=== PATIENT | female | born 1985 | race African-American/Black ===

== ENCOUNTER 2017-04-25 17:04 | Emergency (ER) | payer MEDICAID, OTHER ==
--- NOTE | 2017-04-25 17:33 | ER Document Report ---
ED Medical Screen (RME) - General Chief Complaint: Allergy Symptoms Stated Complaint: ABDOMINAL PAIN,CHILLS Time Seen by Provider: 04/25/17 17:26 Mode of Arrival: Ambulatory Information source: Patient TRAVEL OUTSIDE OF THE [place] IN LAST 30 DAYS: No - HPI Patient complains to provider of: chills, allergic reaction Onset: This afternoon - pt saw her pcp earlier today and was diagnosed with bronchitis -- after taking first Abc pill, she developed chills and nausea. Thinks she may be having allergic rxn to meds - Related Data Allergies/Adverse Reactions: No Known Allergies Allergy (Unverified 04/25/17 17:06) Past Medical History Renal/ Medical History: Denies: Hx Peritoneal Dialysis Physical Exam - Vital signs Vitals: Temp Pulse Resp BP Pulse Ox 99.3 F 89 18 121/71 100 04/25/17 17:09 04/25/17 17:09 04/25/17 17:09 04/25/17 17:09 04/25/17 17:09 Course - Vital Signs Vital signs: Temp Pulse Resp BP Pulse Ox 99.3 F 89 18 121/71 100 04/25/17 17:09 04/25/17 17:09 04/25/17 17:09 04/25/17 17:09 04/25/17 17:09
--- NOTE | 2017-04-25 18:03 | RADIOLOGY REPORT (SQ) ---
EXAM DESCRIPTION: CHEST PA/LAT COMPLETED DATE/TIME: 04/25/2017 5:50 pm REASON FOR STUDY: cough COMPARISON: None. EXAM PARAMETERS: NUMBER OF VIEWS: two views TECHNIQUE: Digital Frontal and Lateral radiographic views of the chest acquired. RADIATION DOSE: NA LIMITATIONS: none FINDINGS: LUNGS AND PLEURA: No opacities, masses or pneumothorax. No pleural effusion. MEDIASTINUM AND HILAR STRUCTURES: No masses or contour abnormalities. HEART AND VASCULAR STRUCTURES: Heart normal size. No evidence for failure. BONES: No acute findings. HARDWARE: None in the chest. OTHER: No other significant finding. IMPRESSION: NO SIGNIFICANT RADIOGRAPHIC FINDING IN THE CHEST. TECHNICAL DOCUMENTATION: JOB ID: [id number] [employer]- All Rights Reserved
[2017-04-25 18:13] LABS: ABSOLUTE LYMPHOCYTES (AUTO) 0.8 10^3/uL (0.5-4.7); ABSOLUTE MONOCYTES (AUTO) 0.6 10^3/uL (0.1-1.4); ABSOLUTE NEUT (AUTO) 1.8 10^3/uL (1.7-8.2); BASOPHILS % (AUTO) 0.4 % (0-2); EOSINOPHILS % (AUTO) 0.7 % (0-6); HEMATOCRIT 28.3 % (36.0-47.0); LYMPHOCYTES % (AUTO) 24.3 % (13-45); MEAN CORPUSCULAR HEMOGLOBIN 23.6 pg (27.0-33.4); MEAN CORPUSCULAR HGB CONC 31.7 g/dL (32.0-36.0); MEAN CORPUSCULAR VOLUME 74 fl (80-97); MONOCYTES % (AUTO) 18.8 % (3-13); PLATELET COUNT 318 10^3/uL (150-450); RED BLOOD COUNT 3.81 10^6/uL (3.72-5.28); RED CELL DISTRIBUTION WIDTH 17.2 % (11.5-14.0); SEGMENTED NEUTROPHILS % (AUTO) 55.8 % (42-78); TOTAL CELLS COUNTED % (AUTO) 100 %; WHITE BLOOD COUNT 3.2 10^3/uL (4.0-10.5)
[2017-04-25 18:33] LABS: ALANINE AMINOTRANSFERASE 35 U/L (9-52); ALBUMIN 4.4 g/dL (3.5-5.0); ALKALINE PHOSPHATASE 69 U/L (38-126); ANION GAP 11 (5-19); ASPARTATE AMINO TRANSFERASE 34 U/L (14-36); BILIRUBIN,DIRECT 0.2 mg/dL (0.0-0.4); BILIRUBIN,TOTAL 0.8 mg/dL (0.2-1.3); BLOOD UREA NITROGEN 7 mg/dL (7-20); CALCIUM 9.9 mg/dL (8.4-10.2); CARBON DIOXIDE 25 mmol/L (22-30); CHLORIDE 102 mmol/L (98-107); GLUCOSE 86 mg/dL (75-110); POTASSIUM 4.5 mmol/L (3.6-5.0); SODIUM 137.5 mmol/L (137-145); TOTAL PROTEIN 7.7 g/dL (6.3-8.2)
[2017-04-25 19:36] LABS: APPEARANCE,URINE CLEAR; BILIRUBIN,URINE NEGATIVE (NEGATIVE); COLOR,URINE YELLOW; GLUCOSE, URINE NEGATIVE (NEGATIVE); KETONES,URINE 20 mg/dL (NEGATIVE); LEUKOCYTE ESTERASE,URINE NEGATIVE (NEGATIVE); NITRITE,URINE NEGATIVE (NEGATIVE); PROTEIN,URINE NEGATIVE (NEGATIVE); URINE SPECIFIC GRAVITY 1.009; UROBILINOGEN,URINE NEGATIVE mg/dL (<2.0)
[2017-04-25] MEDS ORDERED: ONDANSETRON 4 MG TAB.RAPDIS PO ONE (22:05)
[2017-04-25] MEDS ORDERED: ACETAMINOPHEN 325 MG TABLET PO ONE (22:05)
[2017-04-25] MEDS ORDERED: ONDANSETRON ODT 4 MG TAB (6 TAB/ER DISP) PO PRN (22:18)
--- NOTE | 2017-04-25 22:21 | ER Document Report ---
ED General - General Chief Complaint: Allergy Symptoms Stated Complaint: ABDOMINAL PAIN,CHILLS Time Seen by Provider: 04/25/17 17:26 Mode of Arrival: Ambulatory Notes: Patient is a 31-year-old female who presents with complaint of having epigastric abdominal pain and nausea after taking azithromycin. She is prescribed this because she was diagnosed with bronchitis by urgent care. Patient denies history of asthma. She denies wheezing. She was prescribed inhalers well. She denies fevers. He has no other complaints at this time. She does not smoke. Patient was also prescribed Tessalon Perles. TRAVEL OUTSIDE OF THE [place] IN LAST 30 DAYS: No - Related Data Allergies/Adverse Reactions: No Known Allergies Allergy (Unverified 04/25/17 17:06) Past Medical History - General Information source: Patient - Social History Smoking Status: Never Smoker Frequency of alcohol use: None Drug Abuse: None Family History: Reviewed & Not Pertinent Patient has suicidal ideation: No Patient has homicidal ideation: No Renal/ Medical History: Denies: Hx Peritoneal Dialysis Review of Systems - Review of Systems Notes: My Normal Review Basic REVIEW OF SYSTEMS: CONSTITUTIONAL : Denies fever, chills, or sweats. Denies recent illness. EENT: Denies eye, ear, throat, or mouth pain or symptoms. Denies nasal or sinus congestion. CARDIOVASCULAR: Denies chest pain. RESPIRATORY: Denies cough, cold, or chest congestion. Denies shortness of breath, difficulty breathing, or wheezing. GASTROINTESTINAL: Epigastric abdominal pain. episode of vomiting. GENITOURINARY: Denies difficulty urinating, painful urination, burning, frequency, or blood in urine. MUSCULOSKELETAL: Denies neck or back pain or joint pain or swelling. SKIN: Denies rash or skin lesions. NEUROLOGICAL: Denies altered mental status or loss of consciousness. Denies headache. Denies weakness or paralysis or loss of use of either side. Denies problems with gait or speech. Denies sensory or motor loss. ALL OTHER SYSTEMS REVIEWED AND NEGATIVE. Physical Exam - Vital signs Vitals: Temp Pulse Resp BP Pulse Ox 99.3 F 89 18 121/71 100 04/25/17 17:09 04/25/17 17:09 04/25/17 17:09 04/25/17 17:09 04/25/17 17:09 - Notes Notes: General Appearance: Well nourished, alert, cooperative, no acute distress, no obvious discomfort. Vitals: reviewed, See vital signs table. Head: no swelling or tenderness to the head Eyes: PERRL, EOMI, Conjuctiva clear Mouth: No decreasd moisture Throat: Normal-appearing pharynx without evidence of pharyngitis. Lungs: No wheezing, No rales, No rhonci, No accessory muscle use, good air exchange bilaterally. Heart: Normal rate, Regular rythm, No murmur, no rub Abdomen: Normal BS, soft, No rigidity, very mild epigastric abdominal tenderness to palpation., No guarding, no rebound, Extremities: strength 5/5 in all extremities, good pulses in all extremities, no swelling or tenderness in the extremities, no edema. Skin: warm, dry, appropriate color, no rash Neuro: speech clear, oriented x 3, normal affect, responds appropriately to questions. Course - Re-evaluation Re-evalutation: 04/26/17 05:52 I suspect patient's epigastric pain and nausea probably related to the azithromycin. I will have her stop taking azithromycin. I do not think she needs an antibiotic. She does not have pneumonia. She did not have wheezing. She looks well. Encouraged her return to ER if she has recurrent wheezing feels unwell. Told [facility] is located take. Encouraged follow-up with in 2-3 days for reevaluation. Patient agrees with plan will be discharged home. - Vital Signs Vital signs: Temp Pulse Resp BP Pulse Ox 98.3 F 78 16 118/69 100 04/25/17 22:28 04/25/17 22:28 04/25/17 22:28 04/25/17 22:28 04/25/17 22:28 - Laboratory Result Diagrams: 04/25/17 17:35 04/25/17 17:35 Laboratory results interpreted by me: 04/25/17 04/25/17 17:35 19:15 WBC 3.2 L Hgb 9.0 L Hct 28.3 L MCV 74 L MCH 23.6 L MCHC 31.7 L RDW 17.2 H Monocytes % 18.8 H Urine Ketones 20 H Discharge - Discharge Clinical Impression: Cough, Nausea Medication side effect Qualifiers: Encounter type: initial encounter Qualified Code(s): T88.7XXA - Unspecified adverse effect of drug or medicament, initial encounter Abdominal pain Qualifiers: Abdominal location: epigastric Qualified Code(s): R10.13 - Epigastric pain Condition: Good Disposition: HOME, SELF-CARE Additional Instructions: Please return to the ER immediately if you have wheezing, difficulty breathing, recurrent vomiting, or feel unwell. Please stop taking the Azithromycin. Your white blood cell count is a little low. This sometimes happens during a viral illness. Please follow up with your doctor in 1 week to have your WBC count rechecked to make sure it returns to normal.
[2017-04-25 22:29] VITALS: BP 118/69
== END 2017-04-25 22:28 | disposition home or self-care (01) ==
LOC: ER 17:04
DX: R05 Cough (principal); R11.0 Nausea; R10.13 Epigastric pain; T88.7XXA Unspecified adverse effect of drug or medicament, initial encounter
CPT/HCPCS: 99284; 36415; 85025; 81025; 80053; 81001; 71046; J3490; S0119

== ENCOUNTER 2017-08-29 19:24 | Emergency (ER) | payer SELFPAY ==
[2017-08-29 19:30] VITALS: BP 125/78
[2017-08-29] MEDS ORDERED: PREDNISONE 20 MG TABLET PO ONE (21:02)
--- NOTE | 2017-08-29 21:04 | ER Document Report ---
ED ENT - General Chief Complaint: Sore Throat Stated Complaint: COLD SYMPTOMS Time Seen by Provider: 08/29/17 19:48 Mode of Arrival: Ambulatory Information source: Patient Notes: 1-year-old female presented ED for cough cold congestion nasal drainage and sore throat for 4 days. She states she has felt a little hot flushed and felt like she might pass out earlier today. She states she has done this in the past after she had taken a sleeping medicine. Vital signs are stable at this time blood pressure is normal Accu-Chek 107 at this time. Pupils are equal and react to light, patient is alert and oriented, lungs are clear respirations regular even unlabored, patient is able to walk with the even steady gait, and patient is able to speak in full sentences with a decrease in volume. TRAVEL OUTSIDE OF THE [place] IN LAST 30 DAYS: No - HPI Patient complains to provider of: Nose problem, Throat problem Onset: Other - 4 days Onset/Duration: Gradual Quality of pain: Achy, Other Severity: Moderate - But the sore throat Pain Level: 4 Context: Recent Illness Location of pain: Nose, Sinus, Throat Associated symptoms: Congestion, Cough, Runny nose, Sinus pain, Sinus drainage, Sore throat, Swollen glands Similar symptoms previously: Yes Recently seen / treated by doctor: No - Related Data Allergies/Adverse Reactions: No Known Allergies Allergy (Verified 08/29/17 19:27) Past Medical History - General Information source: Patient - Social History Smoking Status: Never Smoker Cigarette use (# per day): No Chew tobacco use (# tins/day): No Smoking Education Provided: No Frequency of alcohol use: None Drug Abuse: None 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 denies: Arthritis, COPD, CVA, Thyroid Disfunction Patient has suicidal ideation: No Patient has homicidal ideation: No - Past Medical History Cardiac Medical History: Reports: None Pulmonary Medical History: Reports: None EENT Medical History: Reports: None Neurological Medical History: Reports: None Endocrine Medical History: Reports: None Renal/ Medical History: Reports: None Malignancy Medical History: Reports: None GI Medical History: Reports: None Musculoskeltal Medical History: Reports None Skin Medical History: Reports None Psychiatric Medical History: Reports: None Traumatic Medical History: Reports: None Infectious Medical History: Reports: None Surgical Hx: Negative Past Surgical History: Reports: None - Immunizations Immunizations up to date: Yes Review of Systems - Review of Systems Constitutional: Recent illness EENT: No symptoms reported, Nose discharge, Sinus discharge, Throat pain, Other - Decrease in voice Cardiovascular: No symptoms reported Respiratory: Cough Gastrointestinal: No symptoms reported Genitourinary: No symptoms reported Female Genitourinary: No symptoms reported Musculoskeletal: No symptoms reported Skin: No symptoms reported Hematologic/Lymphatic: No symptoms reported Neurological/Psychological: No symptoms reported -: Yes All other systems reviewed and negative Physical Exam - Vital signs Vitals: Temp Pulse Resp BP Pulse Ox 98.4 F 90 18 125/78 99 08/29/17 19:28 08/29/17 19:28 08/29/17 19:28 08/29/17 19:28 08/29/17 19:28 Interpretation: Normal - General General appearance: Appears well, Alert - HEENT Head: Normocephalic, Atraumatic Eyes: Normal Pupils: PERRL Visual lopez normal: Yes Ears: Normal External canal: Normal Tympanic membrane: Normal Sinus: Normal Nasal: Purulent discharge, Swelling Mouth/Lips: Normal Mucous membranes: Normal Pharynx: Post nasal drainage. No: Erythema, Exudate, Peritonsillar abscess, Retropharyngeal abscess, Tonsillar hypertrophy, Potential airway comprom. Neck: Anterior cervical chain - Respiratory Respiratory status: No respiratory distress Chest status: Nontender Breath sounds: Nonproductive cough Chest palpation: Normal - Cardiovascular Rhythm: Regular Heart sounds: Normal auscultation Murmur: No - Abdominal Inspection: Normal Distension: No distension Bowel sounds: Normal Tenderness: Nontender Organomegaly: No organomegaly - Back Back: Normal, Nontender - Extremities General upper extremity: Normal inspection, Nontender, Normal color, Normal ROM , Normal temperature General lower extremity: Normal inspection, Nontender, Normal color, Normal ROM , Normal temperature, Normal weight bearing. No: Risa's sign - Neurological Neuro grossly intact: Yes Cognition: Normal Orientation: AAOx4 [place] Coma Scale Eye Opening: Spontaneous Hal Coma Scale Verbal: Oriented [place] Coma Scale Motor: Obeys Commands Hal Coma Scale Total: 15 Speech: Normal Motor strength normal: LUE, RUE, LLE, RLE Sensory: Normal - Psychological Associated symptoms: Normal affect, Normal mood - Skin Skin Temperature: Warm Skin Moisture: Dry Skin Color: Normal Course - Re-evaluation Re-evalutation: 08/29/17 21:13 After performing a Medical Screening Examination, I estimate there is LOW risk for ACUTE CORONARY SYNDROME, RESPIRATORY FAILURE, SEPSIS OR MENINGITIS, thus I consider the discharge disposition reasonable. I have reevaluated this patient multiple times and no significant life threatening changes are noted. The patient and I have discussed the diagnosis and risks, and we agree with discharging home with close follow-up. We also discussed returning to the Emergency Department immediately if new or worsening symptoms occur. We have discussed the symptoms which are most concerning (e.g., changing or worsening pain, trouble swallowing or breathing, neck stiffness, fever) that necessitate immediate return. - Vital Signs Vital signs: Temp Pulse Resp BP Pulse Ox 98.4 F 90 18 125/78 99 08/29/17 19:28 08/29/17 19:28 08/29/17 19:28 08/29/17 19:28 08/29/17 19:28 Discharge - Discharge Clinical Impression: Viral sore throat URI (upper respiratory infection) Qualifiers: URI type: unspecified URI Qualified Code(s): J06.9 - Acute upper respiratory infection, unspecified Condition: Stable Disposition: HOME, SELF-CARE Additional Instructions: SORE THROAT: Sore throats may be caused by viruses, bacteria, or fungi. Most are due to a virus, and must get better on their own. Bacterial sore throats, particularly those due to "strep," need treatment with antibiotics. If an antibiotic is prescribed, be sure to take the medication for a full 10 days. Failure to take the antibiotic can result in complications such as rheumatic fever. Sometimes, an injection of antibiotics is given instead of pills or liquid. This single "shot" is equal in effectiveness to the oral medication. To relieve symptoms, take acetaminophen for pain. Sip clear liquids frequently, or eat popsicles or ice chips. Anesthetic sprays or lozenges may help. Make sure the air in the room is not too dry. Avoid using decongestants or antihistamines. Call the doctor if there is no improvement in two days, or if you have difficulty breathing, increasing throat pain, high fever, rash, or frequent vomiting. UPPER RESPIRATORY ILLNESS: You have a viral infection of the respiratory passages -- a "cold." This common infection causes nasal congestion, drainage, and often sore throat and cough. It is highly contagious. The disease usually lasts about 10 to 14 days. There is no "cure" for the viral infection -- it must run its course. If there is a complication, such as bacterial infection in the nose, sinuses, middle ear, or bronchial tubes, antibiotics may be required. The antibiotics won't affect the virus. Drink plenty of fluids. A humidifier may help. An expectorant medication or decongestant may make you more comfortable. Use acetaminophen or ibuprofen for fever or aches. See the doctor if fever persists over two days, if there is any significant worsening of your symptoms, or if you simply fail to improve as expected. DECONGESTANT MEDICATION: A decongestant medicine has been prescribed. Often this medicine is combined in the same tablet with an antihistamine or expectorant. This type of medicine is helpful in treating a bad cold or sinus condition, as well as in treatment of the nasal congestion of hay fever. It is not of much benefit for lung infections. Decongestant medicines are related to stimulants. They can cause an increase in blood pressure and heart rate. Persons with heart disease and high blood pressure should not take decongestants without discussing this with the physician. If you develop palpitations, chest pain, headache, or tremors, stop the medicine and consult your physician. STEROID MEDICATION: You have been given an injection of or oral medicine of the cortisone/ steroid class. This medication is used to control inflammation or allergy. Kendrick t is usually only given for a short period of time, until the acute process subsides. There are usually no side effects from short-term use of cortisone-like medications. Some persons feel an increased sense of well-being and are not sleepy at bedtime. Long-term use of cortisone medications is best avoided, unless required for a severe condition. If your condition does not remit, or relapses after the course of corticosteroid medication, you should consult your physician. USE OF ACETAMINOPHEN (Tylenol): Acetaminophen may be taken for pain relief or fever control. It's much safer than aspirin, offering a wider range of "safe" dosages. It is safe during . Some brand names are Tylenol, Panadol, Datril, Anacin 3, Tempra, and Liquiprin. Acetaminophen can be repeated every four hours. The following are maximum recommended dosages: >89 pounds or adults 650 mg to 900 mg Acetaminophen can be repeated every four hours. Maximum dose not to exceed 4000 mg a day. Please try Sudafed 30 mg, Mucinex 600 mg, Claritin 10 mg, and Flonase nasal spray for your cough cold congestion symptoms. These are all [id number]-[id number] medications. The Sudafed you will need to ask the pharmacist for. Use Tylenol or Motrin for the pain and discomfort. For your sore throat she can use Chloraseptic [place] and salt and soda solution gargles. Salt and soda solution 1 quart of water 1 tablespoon of salt 1 teaspoon of baking soda Mixed 3 ingredients together and boil for 1 minute Placed in a covered quart jar Use 1/2 ounce of cold solution to gargle 3 times a day FOLLOW-UP CARE: If you have been referred to a physician for follow-up care, call the physician s office for an appointment as you were instructed or within the next two days. If you experience worsening or a significant change in your symptoms, notify the physician immediately or return to the Emergency Department at any time for re-evaluation. Forms: Return to Work Referrals: SINCERE WEINER MD [Primary Care Provider] - Follow up as needed
[2017-08-29] MEDS ORDERED: PSEUDOEPHEDRINE HCL 30 MG TABLET PO ONE (21:05)
[2017-08-29] MEDS ORDERED: GUAIFENESIN 600 MG TABLET.SA PO ONE (21:05)
== END 2017-08-29 21:20 | disposition home or self-care (01) ==
LOC: ER 19:24
DX: J06.9 Acute upper respiratory infection, unspecified (principal); J02.9 Acute pharyngitis, unspecified; B97.89 Other viral agents as the cause of diseases classified elsewhere; R09.81 Nasal congestion; R09.89 Other specified symptoms and signs involving the circulatory and respiratory systems; R05 Cough
CPT/HCPCS: 99283; 87070; 87880; 82962; J7512

== ENCOUNTER 2018-07-13 16:18 | Emergency (ER) | payer OTHER ==
[2018-07-13 16:26] VITALS: BP 122/62
[2018-07-13] MEDS ORDERED: LIDOCAINE 1% INJ-PF (10 MG/ML) 30 ML SDV INJ ONE (16:46)
--- NOTE | 2018-07-13 16:48 | ER Document Report ---
ED Medical Screen (RME) - General Chief Complaint: Abscess Stated Complaint: SKIN PROBLEM Time Seen by Provider: 07/13/18 16:43 Primary Care Provider: SINCERE WEINER MD [Primary Care Provider] - Follow up as needed TRAVEL OUTSIDE OF THE [place] IN LAST 30 DAYS: No - HPI Notes: 07/13/18 16:47 Patient is a 32-year-old female with no significant past medical history and no history of MRSA who presents emergency department complaining of abscess to her right lower leg that is been there for 2 days. Patient has noticed redness and associated pain. It has not been draining. Denies drug allergies. Denies fever, chest pain, shortness of breath, abdominal pain. I have treated and performed a rapid initial assessment of this patient. A comprehensive ED assessment and evaluation of the patient, analysis of test results and completion of medical decision making process will be conducted by additional ED providers. PHYSICAL EXAMINATION: GENERAL: Well-appearing, well-nourished and in no acute distress. A&Ox4. Answers questions appropriately. LUNGS: Breath sounds clear to auscultation bilaterally and equal. No wheezes rales or rhonchi. HEART: Regular rate and rhythm without murmurs, rubs, gallops. Skin: There is noted abscess/fluctuance to the right lower leg anteriorly without drainage. Positive tenderness. - Related Data Allergies/Adverse Reactions: No Known Allergies Allergy (Verified 07/13/18 16:19) Past Medical History - Social History Chew tobacco use (# tins/day): No Frequency of alcohol use: None Drug Abuse: None Renal/ Medical History: Denies: Hx Peritoneal Dialysis - Immunizations Immunizations up to date: Yes Physical Exam - Vital signs Vitals: Temp Pulse Resp BP Pulse Ox 99.1 F 79 18 122/62 100 07/13/18 16:25 07/13/18 16:25 07/13/18 16:25 07/13/18 16:25 07/13/18 16:25 Course - Vital Signs Vital signs: Temp Pulse Resp BP Pulse Ox 99.1 F 79 18 122/62 100 07/13/18 16:25 07/13/18 16:25 07/13/18 16:25 07/13/18 16:25 07/13/18 16:25 Doctor's Discharge - Discharge Referrals: SINCERE WEINER MD [Primary Care Provider] - Follow up as needed
--- NOTE | 2018-07-13 17:38 | ER Document Report ---
ED General - General Chief Complaint: Abscess Stated Complaint: SKIN PROBLEM Time Seen by Provider: 07/13/18 16:43 Primary Care Provider: SINCERE WEINER MD [COMMUNITY BASED STAFF] - Follow up as needed Mode of Arrival: Ambulatory Information source: Patient TRAVEL OUTSIDE OF THE [place] IN LAST 30 DAYS: No - HPI Patient complains to provider of: Right lower extremity abscess Onset: Other - Symptoms present for about 1 week, but no pustular head formation developed over the past 2 days. Onset/Duration: Gradual Quality of pain: Burning Severity: Moderate Pain Level: 3 Associated symptoms: None Exacerbated by: Denies Relieved by: Denies Similar symptoms previously: No Recently seen / treated by doctor: No Notes: 32-year-old -[place] female here with a right lower leg abscess. She has been putting hot compresses on it and it came to ahead sometime during the past 24 hours. No fevers or shaking chills. - Related Data Allergies/Adverse Reactions: No Known Allergies Allergy (Verified 07/13/18 16:19) Past Medical History - General Information source: Patient - Social History Smoking Status: Never Smoker Chew tobacco use (# tins/day): No Frequency of alcohol use: None Drug Abuse: None Family History: Reviewed & Not Pertinent, CAD, DM, Hyperlipidemia, Hypertension, Malignancy. denies: Arthritis, COPD, CVA, Thyroid Disfunction Patient has suicidal ideation: No Patient has homicidal ideation: No Renal/ Medical History: Denies: Hx Peritoneal Dialysis - Immunizations Immunizations up to date: Yes Review of Systems - Review of Systems Notes: Constitutional: No fevers. No chills. EENT: No eye redness. No eye pain. No ear pain. No sore throat. Cardiovascular: No chest pain. No palpitations. Respiratory: No cough. No shortness of breath. No respiratory distress. Gastrointestinal: No abdominal pain. No nausea, vomiting, or diarrhea. Genitourinary: Atraumatic. No lesions. No pain. No discharge. Musculoskeletal: Atraumatic. No swelling. No deformities. Skin: No rash or lesions. Positive abscess right lower leg Lymphatic: No swollen lymph nodes. Neurologic: No headache. No syncope. Psychiatric: No suicidal or homicidal ideation. Physical Exam - Vital signs Vitals: Temp Pulse Resp BP Pulse Ox 99.1 F 79 18 122/62 100 07/13/18 16:25 07/13/18 16:25 07/13/18 16:25 07/13/18 16:25 07/13/18 16:25 - Notes Notes: General: Well-developed, well-nourished. In no acute distress. Non-toxic appearing. Cardiac: Well-perfused. Regular rate and rhythm. No murmurs, rubs, or gallops. Pulmonary: No respiratory distress. No cyanosis. Bilateral lung fiels are clear to auscultation. Abdominal: Non-distended. Non-rigid. Bowels sounds are present in all four quadrants. No guarding or rebound. HEENT: Head is atraumatic. Conjunctivae not reddened. No tearing. PERRL. EOMI. Orbits atraumatic. No periorbital swelling or erythema. Oropharynx is without erythema, swelling, or exudates. Neck: Supple. No adenopathy. No meningismus. Dermatologic: Warm with good turgor. No rash. Atraumatic. Pustular abscess with surrounding cellulitis and ended to the mid right tib-fib region. Chest: Atraumatic. No chest wall tenderness to palpation. Musculoskeletal: Moves all extremities well. No range of motion deficits. no muscular or joint tenderness. No paraspinal muscle tenderness. no midline spinal tenderness or step-off. Genitourinary: Examination deferred Neurologic: No gross neurologic deficits. Psychiatric: Normal mood. Course - Re-evaluation Re-evalutation: 07/13/18 17:40 Will incise and drain the lesion and cultured. Will discharge patient home on Keflex and Bactrim. - Vital Signs Vital signs: Temp Pulse Resp BP Pulse Ox 99.1 F 79 18 122/62 100 07/13/18 16:25 07/13/18 16:25 07/13/18 16:25 07/13/18 16:25 07/13/18 16:25 Procedures - Incision and Drainage Right lower leg Time completed: 17:40 Type: Simple Anesthetic type: 1% Lidocaine mL's of anesthetic: 3 Blade size: 11 I&D procedure: Betadine prep applied Incision Method: Incision made by scalpel Amount/type of drainage: 1 mL of pustular bloody drainage. Patient tolerated the procedure well Discharge - Discharge Clinical Impression: Abscess of lower leg Condition: Good Instructions: Abscess ([facility]), Cephalexin ([facility]), Trimethoprim-Sulfa ([facility]), Post Incision and Drainage Additional Instructions: Continue your treatment of warm compresses. This helps draw the infection to the surface and assist in draining. You should have this routinely checked in 2 days. Start the Bactrim and Keflex today as directed. Stay home from work tonight. If the redness and swelling extends further despite the antibiotic treatment, please return to the emergency department for recheck. Prescriptions: Cephalexin Monohydrate [Keflex 500 mg Capsule] 500 mg PO Q6H 10 Days #40 capsule Sulfamethoxazole/Trimethoprim [Bactrim Ds Tablet] 1 each PO BID 10 Days #20 tablet Forms: Return to Work Referrals: SINCERE WEINER MD [COMMUNITY BASED STAFF] - 07/15/18 Print Language: [place]ine[place]
== END 2018-07-13 18:09 | disposition home or self-care (01) ==
LOC: ER 16:18
DX: L02.415 Cutaneous abscess of right lower limb (principal)
CPT/HCPCS: 99283; 87070; 87205; 87077; 87186; 10060; A6266

== ENCOUNTER → 2019-06-28 | Outpatient (CLI) | payer BC ==
[2019-06-28 09:06] LABS: APPEARANCE,URINE CLEAR; BILIRUBIN,URINE NEGATIVE (NEGATIVE); COLOR,URINE YELLOW; GLUCOSE, URINE NEGATIVE (NEGATIVE); KETONES,URINE NEGATIVE (NEGATIVE); LEUKOCYTE ESTERASE,URINE NEGATIVE (NEGATIVE); NITRITE,URINE NEGATIVE (NEGATIVE); PROTEIN,URINE NEGATIVE (NEGATIVE); URINE SPECIFIC GRAVITY 1.015; UROBILINOGEN,URINE NEGATIVE mg/dL (<2.0)
[2019-06-28 09:11] LABS: ABSOLUTE LYMPHOCYTES (AUTO) 1.4 10^3/uL (0.5-4.7); ABSOLUTE MONOCYTES (AUTO) 0.6 10^3/uL (0.1-1.4); ABSOLUTE NEUT (AUTO) 2.4 10^3/uL (1.7-8.2); BASOPHILS % (AUTO) 0.5 % (0-2); EOSINOPHILS % (AUTO) 0.8 % (0-6); HEMATOCRIT 28.1 % (36.0-47.0); HEMOGLOBIN 8.9 g/dL (12.0-15.5); LYMPHOCYTES % (AUTO) 31.3 % (13-45); MEAN CORPUSCULAR HEMOGLOBIN 23.1 pg (27.0-33.4); MEAN CORPUSCULAR HGB CONC 31.8 g/dL (32.0-36.0); MEAN CORPUSCULAR VOLUME 73 fl (80-97); PLATELET COUNT 302 10^3/uL (150-450); RED BLOOD COUNT 3.86 10^6/uL (3.72-5.28); RED CELL DISTRIBUTION WIDTH 15.7 % (11.5-14.0); SEGMENTED NEUTROPHILS % (AUTO) 54.4 % (42-78); TOTAL CELLS COUNTED % (AUTO) 100 %; WHITE BLOOD COUNT 4.4 10^3/uL (4.0-10.5)
[2019-06-28 09:48] LABS: ALBUMIN 4.4 g/dL (3.5-5.0); ALKALINE PHOSPHATASE 68 U/L (38-126); ANION GAP 10 (5-19); ASPARTATE AMINO TRANSFERASE 23 U/L (14-36); BILIRUBIN,DIRECT 0.2 mg/dL (0.0-0.4); BILIRUBIN,TOTAL 0.7 mg/dL (0.2-1.3); BLOOD UREA NITROGEN 12 mg/dL (7-20); CALCIUM 9.4 mg/dL (8.4-10.2); CARBON DIOXIDE 26 mmol/L (22-30); CHLORIDE 102 mmol/L (98-107); CHOLESTEROL 194.13 mg/dL (0-200); GLUCOSE 96 mg/dL (75-110); IRON(TIBC) 35.1 ug/dL (37-170); POTASSIUM 4.1 mmol/L (3.6-5.0); TOTAL PROTEIN 8.3 g/dL (6.3-8.2); TRIGLYCERIDES 59 mg/dL (<150)
[2019-06-28 10:05] LABS: DIRECT LDL 112 mg/dL (<100)
[2019-06-28 10:44] LABS: ALBUMIN 4.4 g/dL (3.5-5.0); ALKALINE PHOSPHATASE 68 U/L (38-126); ASPARTATE AMINO TRANSFERASE 23 U/L (14-36); BILIRUBIN,DIRECT 0.2 mg/dL (0.0-0.4); BILIRUBIN,TOTAL 0.7 mg/dL (0.2-1.3)
[2019-06-28 10:45] LABS: TOTAL PROTEIN 8.3 g/dL (6.3-8.2)
== END ==
LOC: LAB 08:55
PROVIDERS: ATTEND Family Medicine
DX: Z00.00 Encounter for general adult medical examination without abnormal findings (principal); D50.9 Iron deficiency anemia, unspecified; F33.0 Major depressive disorder, recurrent, mild; K21.9 Gastro-esophageal reflux disease without esophagitis; R10.13 Epigastric pain
CPT/HCPCS: 36415; 80061; 80076; 81001; 82306; 82607; 82728; 83036; 83540; 83550; 83690; 84443; 85025; 87070

== ENCOUNTER → 2019-10-06 | Outpatient (CLI) | payer BC | LOC: RDC 15:40 | PROVIDERS: ATTEND Nurse Practitioner Family | DX: Z53.9 Procedure and treatment not carried out, unspecified reason (principal) | CPT/HCPCS: 87635; C9803 ==

== ENCOUNTER → 2020-04-10 | Outpatient (CLI) | payer BC | LOC: OD 15:25 | PROVIDERS: ATTEND Family Medicine | DX: E55.9 Vitamin D deficiency, unspecified (principal); D50.9 Iron deficiency anemia, unspecified; R53.82 Chronic fatigue, unspecified | CPT/HCPCS: 36415; 82306; 82947; 83036; 84443 ==